=== PATIENT | male | born 1955 | race Caucasian/White ===

== ENCOUNTER 2017-10-22 15:47 | Emergency (ER) | payer MEDICAID, OTHER ==
[2017-10-22] MEDS: LIDOCAINE 2% (MDV) 20 ML INJ INJ (17:08)
[2017-10-22] MEDS: DIPHTH/TET/ACEL PERTUSS (ADULT) 0.5 ML VIAL IM* (17:10)
== END 2017-10-22 19:10 | disposition home or self-care (01) ==
LOC: FTE 15:47
DX: S61.012A Laceration without foreign body of left thumb without damage to nail, initial encounter (principal); W27.0XXA Contact with workbench tool, initial encounter; Y92.9 Unspecified place or not applicable; Z23 Encounter for immunization
CPT/HCPCS: 12001; 73140; 90471; 90715; 99283-25

== ENCOUNTER 2017-11-01 09:48 | Emergency (ER) | payer MEDICAID | END 2017-11-02 10:30 | disposition home or self-care (01) | LOC: E/R 11-02 10:30 | DX: Z48.02 Encounter for removal of sutures (principal) | CPT/HCPCS: 99281 ==